=== PATIENT | male | born 1975 | race Caucasian/White ===

== ENCOUNTER → 2018-04-15 10:55 | Outpatient (CLI) | payer OTHER, SELFPAY ==
--- NOTE | 2018-04-15 11:03 | MRI_ITS ---
STUDY: MRI LEFT ANKLE WITHOUT CONTRAST REASON FOR EXAM: Left heel/foot pain for 2-3 months, evaluate for plantaris fasciitis. TECHNIQUE: Standardized fat and water weighted pulse sequences were obtained in all 3 orthogonal planes. COMPARISON: None. FINDINGS: Normal subcutis adipose space. There is a small volume of fluid in the submalleolar posterior tibialis and flexor digitorum longus tendon sheaths (T2 coronal images 20-22). The posterior tibialis and flexor digitorum longus tendons are morphologically normal. There is fluid in the flexor hallucis longus tendon sheath, likely from communication with the tibiotalar articulation. Normal peroneus longus and brevis tendons. Normal tibialis anterior tendon. Normal extensor hallucis longus tendon. Normal extensor digitorum longus tendons. Normal Achilles tendon and teno-osseous insertion. Normal plantar without thickening or interstitial edema to indicate plantar fasciitis. There is a very small plantar calcaneal enthesophyte (T1 sagittal image 12). There is no calcaneal stress fracture. Normal intrinsic muscles of the rearfoot. Normal distal tibiofibular syndesmotic ligamentous complex. Normal lateral ligamentous complex. Normal subtalar ligaments and sinus tarsi. Normal deltoid ligamentous complexes. Normal plantar calcaneonavicular (spring) ligament. There is a small tibiotalar joint effusion (inversion recovery sagittal image 13). Normal talar dome. Normal subtalar articulations. Normal talonavicular articulation. Normal calcaneocuboid articulation. Normal navicular-cuneiform articulations. MRI/Lower Ext/No Jt/w/o IMPRESSION: Mild posterior tibialis and flexor digitorum longus tenosynovitis. Small tibiotalar joint effusion. Very small plantar calcaneal enthesophyte. No demonstrated plantar fasciitis. Electronically Signed: Tu Palomino MD at 14:10 EST Tel , Service support ,
== END ==
PROVIDERS: Referring Provider Podiatrist; Visit Provider Podiatrist
DX: M72.2 Plantar fascial fibromatosis (principal); M77.32 Calcaneal spur, left foot
CPT/HCPCS: 73718

== ENCOUNTER → 2018-10-11 | Outpatient (CLI) | payer OTHER, SELFPAY ==
--- NOTE | 2018-10-11 16:22 | MRI_ITS ---
HISTORY: Left rear foot pain. Heel spur. Plantar fasciitis. Symptoms since January 2018. Technique: Sagittal T1 and T2 fat sat, axial T1 and T2, coronal T2 series were obtained through the calcaneus and ankle. 6 series. 178 images. Previous MRI of this region was performed on April 15, 2018. Previous x-ray is from March 18, 2015, but is of the right calcaneus Findings: Plantar fasciitis is now present. The plantar aponeurosis is now thickened. Abnormal increased T2-weighted signal consistent with edema is present within the aponeurosis and extends down to the periosteum of the weightbearing portion of the calcaneus. This is new disease since previous study. The plantar fascia, however, is intact, and has not yet disrupted from the calcaneus. The Achilles tendon is intact and normal. The paranasal longus and brevis tendons appear to be intact and normal. Flexor hallucis longus tendon has some fluid within its sheath, which is normal in the patient with a small ankle effusion. Posterior tibial and flexor digitorum longus tendons appear to be normal in signal. Anterior extensor tendons appear to be intact. MRI/Lower Ext/No Jt/w/o IMPRESSION: Plantar fasciitis at the plantar aponeurosis. As yet no tearing to the plantar fascia. at 0253 Reported and signed by: Tomasz Johnson MD Electronically Signed: Tomasz Johnson MD at 2:52 EDT Tel , Service support ,
== END | disposition home or self-care (01) ==
PROVIDERS: Referring Provider Podiatrist; Visit Provider Podiatrist
DX: M72.2 Plantar fascial fibromatosis (principal); M77.32 Calcaneal spur, left foot
CPT/HCPCS: 73718

== ENCOUNTER 2018-11-11 05:53 | Day surgery (SDC) | payer OTHER, SELFPAY ==
[2018-11-09 13:45] LABS: Absolute Lymphocyte Count 2.21 X10^3/uL (0.83-4.51); Absolute Neutrophil Count 4.6 X10^3/uL (2.0-7.7); Basophil# 0.05 X10^3/uL; Basophil% 0.6 % (0-1); Eosinophil# 0.13 X10^3/uL; Eosinophils% 1.7 % (0-5); Hematocrit 46.3 % (40-54); Hemoglobin 15.6 g/dL (13.0-16.5); Lymphocyte # 2.21 X10^3/ul (4.0); Lymphocyte % 28.7 % (19-41); Mean Corp Hgb Conc 33.7 g/dL (32-36); Mean Corpuscular Hgb 29.1 pg (27.0-32.0); Mean Corpuscular Volume 86.4 fL (80-94); Mean Platelet Vol. 9.6 fl (6.2-12.0); Monocyte# 0.72 X10^3/uL; Monocyte% 9.4 % (0-10); NRBC Flagged by Analyzer 0 % (0-5); Neutrophil # 4.58 X10^3/uL (2.7-7.7); Neutrophil % 59.5 % (47-70); Platelet Count 214 K/mm3 (150-450); RBC Distribution Width CV 12.8 % (11.6-14.6); RBC Distribution Width SD 39.8 fl (35.1-43.9); Red Blood Count 5.36 M/mm3 (4.6-6.2); White Blood Count 7.7 K/mm3 (4.4-11.0)
[2018-11-09 14:08] LABS: ALB/GLOB Ratio 1.1 RATIO (0.9-2.4); AST(SGOT) 18 U/L (15-37); Alanine Aminotransfer ALT/SGPT 26 U/L (16-61); Albumin, Serum 3.9 g/dL (3.2-5.0); Alkaline Phosphatase 80 U/L (45-117); Anion Gap 2 (5-15); BUN 16 mg/dL (7-18); BUN/Creat Ratio 14.5 RATIO (10-20); Calcium,Total 9.1 mg/dL (8.5-10.1); Chloride 104 mmol/L (98-107); EST Glomerular Filtration Rate 77 mL/min (>60); Est Glom Filt Rate - Afr Amer 93 mL/min (>60); Globulin 3.7 g/dL (2.2-4.2); Glucose 59 mg/dL (74-106); Potassium 3.6 mmol/L (3.5-5.1); Protein, Total 7.6 g/dL (6.4-8.2); Sodium Level 139 mmol/L (136-145)
[2018-11-11 06:20] VITALS: BP 127/80; PULSE 58; RESP 16; TEMP 36.8; O2SAT 100; BMI 26.6
--- NOTE | 2018-11-11 07:00 | RAD_ITS ---
STUDY: X-RAY - LEFT CALCANEUS REASON FOR EXAM: Male, 43 years old. Plantar fasciotomy. TECHNIQUE: 4 coned-down intraoperative view(s) of the calcaneus were obtained. COMPARISON: None. FINDINGS: Plantar spur. Resection of the plantar spur. RAD/Calcaneus min 2 Views IMPRESSION: Intraoperative imaging provided for resection of the plantar spur. Electronically Signed: Dieudonne Abreu, at 10:43 EDT , Service support ,
[2018-11-11] MEDS: Cefazolin 2 GM in 0.9% Normal Saline 100 ML IV (07:27)
[2018-11-11] MEDS: Bupivacaine Mpf 0.5% 30 ML VIAL (07:35)
--- NOTE | 2018-11-11 08:17 | DCINST_ITS ---
Discharge Diet: Light diet - advance as tolerated Discharge Activity: May not drive while taking narcotic pain medications. Weight Bearing Status: No weight bearing - No weightbearing left foot Keep extremity elevated above heart level: Left Leg - Keep left foot elevated with pillows for at least 50 minutes of every hour Call your doctor if your incision/area has: Continuous Slow Oozing, Sudden Increased Bleeding, Increased Redness, Foul Smelling Discharge Call your doctor if you observe: Fever of 101 or Higher, Coldness, Increased Pain, Shortness of breath, Chest pain, Increased palpitations (irregular heartbeat), Calf discomfort, Uncontrolled pain Cleanse incision/area with: Do not get Incision Wet, Keep Dressing Clean & Dry Allergies/Adverse Reactions: Allergies No Known Allergies Allergy (Verified 11/11/18 06:15) Medications to take at Discharge Cefadroxil [Duracef] 500 mg PO Q12H #6 cap 11/11/18 Hydrocodone/Acetaminophen [Vicodin 5-300 mg Tablet] 1 - 2 tab PO Q6H PRN PRN 3 Days #15 tab 11/11/18 The following prescriptions were given: Cefadroxil [Duracef] 500 mg PO Q12H #6 cap Prescription Printed Hydrocodone/Acetaminophen [Vicodin 5-300 mg Tablet] 1 - 2 tab PO Q6H PRN PRN 3 Days #15 tab PRN Reason: Pain Prescription Printed Primary Care Physician: Care Physician,No Primary [Primary Care Provider] - Test Results: Test results from this visit will be discussed in further detail at your follow- up appointment, if applicable. Please Follow Up With: Rodriguez Pappas DPM When: within 1 week, sooner if needed
[2018-11-11 08:18] VITALS: BP 127/80; BP 129/86; PULSE 65; RESP 16; TEMP 36.4; O2SAT 99
--- NOTE | 2018-11-11 08:18 | PCM.OPRPT ---
Report of Operation Date of Procedure: 11/11/18 Pre-Operative Diagnosis: Plantar Fasciitis, left. 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 He has elected to undergo surgical intervention - plantar fasciotomy with resection of infracalcaneal heel spur. This was discussed with him in detail, reviewed the possible benefits vs risks, goals, expectations, alternative options, and typical healing/post op recovery. The consent forms were reviewed with him, and he freely signed them. All of his questions were answered. No guarantees were given nor implied. No warranties were given. Operative Procedure: The patient was brought back into the operating room and was placed on the operating room table in the supine position. Patient was carefully secured to the operating room table with a safety belt around the waist. A time out was performed and the patient was properly identified and the surgical plan was confirmed. The patient received 2g of IV Cefazolin for antibiotic prophylaxis. A well padded pneumatic tourniquet was applied around the patient's left ankle. The patient received anesthesia per the anesthesiologist, and a total of 20mL of 0.5% Bupivacaine plain was given as a regional nerve block around the heel surgical site. The left foot was scrubbed, prepped, draped in the usual aseptic fashion. The left foot was elevated for 3 minutes and the right ankle pneumatic tourniquet was inflated to 250mmHg. The infracalcaneal spur was visualized on intra operative fluoroscopy, image was saved. A skin incision was made to the medial hindfoot at the level of the plantar fascia and infracalcaneal spur, careful dissection was completed down through the subcutaneous tissue layer. A plane was created superiorly and inferiorly around the plantar fascia and the medial 50% of the plantar fascia was released via a plantar fasciotomy. It was noted there was significant thickening of the plantar fascia with fibrosis at this level consistent with chronic plantar fasciitis. The infracalcaneal spur was felt, and was carefully resected using a powered rasp. Resection of the infracalcaneal spur was confirmed using intraoperative fluoroscopy. Images pre and post infracalcaneal spur resection were saved. The site was flushed out with copious amounts of normal saline solution. The skin was reapproximated using 3-0 Nylon. The pneumatic tourniquet was deflated (total tourniquet time was 17 minutes), and there was immediate return of warmth and perfusion to the foot and to all toes on the foot with normal temperature gradient and CFT < 2 seconds to all toes. Hemostasis was achieved. A dressing was applied which consisted of Betadine soaked adaptic, 4x4 gauze, Kerlix and stephen bandage, being sure to apply it not to tight. The patient tolerated the above operative procedure well at the anesthesia well with no complication. The patient was transported to the recovery room with vital signs stable and in good condition. Post operative orders were placed. Post operative instructions were reviewed and dispensed verbal and written. No weightbearing left foot, keep left foot elevated for at least 50 minutes of every hour, keep dressing clean, dry and intact. Prescription for Vicodin 1-2 tabs PO q 6 hours prn pain was prescribed, also Cefadroxil 500mg PO q 12 hours for 3 days to help prevent infection. He is to follow up with me within 1 week or sooner if needed. Also post op calcaneus xrays (left) were obtained and reviewed in the PACU, 2 views. Findings show resection of infracalcaneal spur, otherwise no other acute findings and no complications seen. Grafts/Implants Used: None - Complications None
[2018-11-11 08:30] VITALS: BP 127/79; BP 127/80; PULSE 50; RESP 16; O2SAT 98
--- NOTE | 2018-11-11 08:41 | RAD_ITS ---
STUDY: X-RAY - LEFT CALCANEUS REASON FOR EXAM: Male, 43 years old. Status post plantar fasciotomy with resection of calcaneal spur. TECHNIQUE: AP and lateral view(s) of the calcaneus were obtained. COMPARISON: None. FINDINGS: Normal visualized calcaneus. Postoperative soft tissue changes. RAD/Calcaneus min 2 Views IMPRESSION: Postoperative soft tissue changes. Electronically Signed: Dieudonne Abreu, at 9:10 EDT , Service support ,
[2018-11-11 08:45] VITALS: BP 122/77; BP 127/80; PULSE 50; RESP 16; O2SAT 100
[2018-11-11 09:00] VITALS: BP 117/76; BP 127/80; PULSE 48; RESP 16; TEMP 36.2; O2SAT 99
[2018-11-11 09:36] VITALS: BP 125/88; BP 127/80; PULSE 55; RESP 16; TEMP 36.2; O2SAT 98
== END 2018-11-11 09:55 | disposition home or self-care (01) ==
LOC: SDC 05:53 → AC 05:54
PROVIDERS: Referring Provider Podiatrist; Visit Provider Podiatrist
PROC: (CPT 28119; principal; 2018-11-11 07:15)
DX: M72.2 Plantar fascial fibromatosis (principal); M77.32 Calcaneal spur, left foot
CPT/HCPCS: 01480; 28119; 64450; 36415; 73650; 76000; 80053; 85025; J7120; J2405

== ENCOUNTER 2019-02-01 16:30 | Outpatient (RCR) | payer OTHER, SELFPAY ==
--- NOTE | 2019-01-04 16:59 | HP.PTEVAL_ITS ---
Patient's Visit Information SOFIA GUERIN is a 43 year old M referred to Physical Therapy by Rodriguez Pappas DPM with a diagnosis of LEFT S/P PLANTARFASCIOTOMY. Date of Evaluation: 01/04/19 Physical Therapist: Johann Alexandra, PT, Cert MDT, OCS - Visit Plan Frequency: 2x /Week Duration: 4 Weeks Plan: PT INTERVENTIONS ROM/FLEXABLITY LEFT PLANTARFASCIA,STRENGTHENING EX'S LEFT ANKLE ,FOAM ROLLING,BIKE ,ENDURANCE - Subjective Findings: This 43 y/o male presenst to physical therapy with left plantarfasciotomy. 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 Pateint had prior PT and all conservative treatments stem cell,E-PAT ,BOOT which failed, Thus ,patient underwent s/p plantar fasciotomy with heel spur resection on November 11 done at [facility]. Patient NWB with crutches 1 wk then boot and crutches couple weeks .Then 2weeks removed boot. Then recommended to start PT. Patient has soreness in foot general. Patient has no pain with walking and general activities . Patient goal is return o runnning. Patient RTS in 2weeks.C/O some parathesia heel . Sleeping good . VOCATION:: [employer]. SOCAIL: . HOBBIES: running - Pain Left Foot Pain Intensity (Out of 10): 0 Pain Intensity Range: 1 Comment: soreness - Objective POSTURE: PES PLANUS( patient use per counter ). GAIT: normal slava. PALAPTION: unremarkable. NEURO: intact. AROM: dorsiflexion 10 degrees ,plantarflexion 65 degrees,eversion 10 degrees,inversion 45 degrees. MMT: ankle stabilizers 4/5,GTE 4/5. PROPRIOCEPTION : intact - Goals Goal 1:: Independant with HEP Goal Time Frame: 2-4 Weeks Goal 2:: Increase strength left ankle 5/5 to return to running. Goal Time Frame: 2-4 Weeks Goal 3:: IMPROVE LFES score by 10 ponts to return to running. Goal Time Frame: 2-4 Weeks Goal 4:: Pateint able to perform simulation activitioes to progress to running. Goal Time Frame: 2-4 Weeks - Rehabilitation Potential Physical Therapy Diagnosis: This patient underwent s/p surgery planterfasciotomy with decrease strengt and prioprioception to return to running. Rehabilitation Potential: Good - Anticipated Interventions Patient/Client Instruction: Educate patient on: Condition, Plan of Care For the Purpose of:: To improve muscle performance and motor function, To increase tolerance to activity/condition/position, To improve ability of physical actions for home/community/work/leisure, To improve gait and locomotor functions, To improve health of tissue, To decrease soft tissue restriction, To improve balance, To improve ability to perform tasks related to life management Other: RUNNING Therapeutic Exercise to Include: Strength training, Endurance training, Balance training, Flexibilty training, Active ROM Comment: ANKLE/PLANTARFASCIA For the Purpose of:: To improve muscle performance and motor function, To imp rove ability to perform ADL's, To increase tolerance to activity/condition/position, To improve ability of physical actions for home/community/work/leisure, To improve health of tissue, To decrease soft tissue restriction, To improve endurance, To improve ability to perform tasks related to life management Thank you for the opportunity to evaluate your patient. For Medicare and Medicare HMO plans, please review the plan of care and approve it. It will need to be FAXED BACK to us at [phone] for Medicare purposes. For Medicare only, by signing this I certify the plan of care. Please let me know if there are questions or concerns regarding this plan of care. Physician Signature: Date:
--- NOTE | 2019-02-01 17:26 | HP.PTDCSUM ---
HP - PT D/C Summary It has been my pleasure to treat SOFIA Perales CALL under orders from Rodriguez Pappas DPM, for the diagnosis of LEFT S/P PLANTARFASCIOTOMY for a total of 8 visit(s). Discharge Date: 02/01/19 Please see the following information for a summary of their discharge status. - Subjective Subjective: Doing well ..progressing okay for d/c - Pain Left Foot Pain Intensity (Out of 10): 0 - Overall Improvement % Improvement: 90 - Objective Objective/Function: POSTURE: normal arch. PALAPTION: UNREMARKABLE. AROM: ankle DF 5 degrees,PF 60 degrees ,INVERSION ,40 degrees,eversion 10 degrees. PROPRIOCEPTION: intact. MMT: ankle 5/5. Patient has up to jogging 1-2miles. Jogged on treadmill . Work on hip strengthening swell - Goals Goal 1:: Independant with HEP Goal Progress: Goal Met Goal 2:: Increase strength left ankle 5/5 to return to running. Goal Progress: Goal Met Goal 3:: IMPROVE LFES score by 10 ponts to return to running. Goal Progress: Goal Met Goal 4:: Pateint able to perform simulation activitioes to progress to running. Goal Progress: Goal Met - Plan Plan: D/C TO HEP - D/C Information Discharge Comments: D/C HEP If there are questions or concerns regarding this patient's physical therapy, please feel free to call me at [phone]. Thank you for the referral of this patient. Sincerely, Johann Alexandra, PT, Cert MDT, OCS
== END 2019-02-01 19:00 | disposition home or self-care (01) ==
LOC: PT 16:30
PROVIDERS: Referring Provider Podiatrist; Visit Provider Podiatrist
DX: Z98.890 Other specified postprocedural states (principal)
CPT/HCPCS: 97110; 97161

== ENCOUNTER → 2021-01-10 11:24 | Outpatient (CLI) | payer OTHER, SELFPAY | PROVIDERS: Visit Provider Physician Assistant Surgical | DX: Z11.52 Encounter for screening for COVID-19 (principal) | CPT/HCPCS: 87635; U0005; U0003 ==

== ENCOUNTER → 2021-03-19 12:14 | Outpatient (CLI) | payer OTHER, SELFPAY ==
[2021-03-19 15:12] LABS: Absolute Lymphocyte Count 1.94 X10^3/uL (0.83-4.51); Absolute Neutrophil Count 8.1 X10^3/uL (2.0-7.7); Basophil# 0.05 X10^3/uL; Basophil% 0.5 % (0-1); Eosinophil# 0.04 X10^3/uL; Eosinophils% 0.4 % (0-5); Hematocrit 45.6 % (40-54); Hemoglobin 15.8 g/dL (13.0-16.5); Lymphocyte # 1.94 X10^3/ul (0.83-4.51); Lymphocyte % 17.9 % (19-41); Mean Corp Hgb Conc 34.6 g/dL (32-36); Mean Corpuscular Hgb 29.4 pg (27.0-32.0); Mean Corpuscular Volume 84.8 fL (80-94); Mean Platelet Vol. 9.8 fl (6.2-12.0); Monocyte# 0.75 X10^3/uL; Monocyte% 6.9 % (0-10); NRBC Flagged by Analyzer 0 % (0-5); Neutrophil # 8.05 X10^3/uL (2.7-7.7); Neutrophil % 74.1 % (47-70); Platelet Count 237 K/mm3 (150-450); RBC Distribution Width CV 12.8 % (11.6-14.6); RBC Distribution Width SD 39.2 fl (35.1-43.9); Red Blood Count 5.38 M/mm3 (4.6-6.2); White Blood Count 10.9 K/mm3 (4.4-11.0)
[2021-03-19 15:28] LABS: AST(SGOT) 32 U/L (15-37); Alanine Aminotransfer ALT/SGPT 55 U/L (16-61); Albumin, Serum 3.9 g/dL (3.2-5.0); Alkaline Phosphatase 79 U/L (45-117); Anion Gap 7 (5-15); BUN 18 mg/dL (7-18); BUN/Creat Ratio 16.7 RATIO (10-20); Calcium,Total 9.6 mg/dL (8.5-10.1); Chloride 107 mmol/L (98-107); Cholesterol 241 mg/dL (200); Creatinine, Serum 1.08 mg/dL (0.70-1.30); EST Glomerular Filtration Rate 78 mL/min (>60); Est Glom Filt Rate - Afr Amer 94 mL/min (>60); Globulin 4.1 g/dL (2.2-4.2); Glucose 95 mg/dL (74-106); High Density Lipoprotein 62 mg/dL; Potassium 4.1 mmol/L (3.5-5.1); Sodium Level 142 mmol/L (136-145); Triglycerides 95 mg/dL; Very Low Density Lipoprotein 19 mg/dL (5-40)
== END ==
PROVIDERS: PCP Family Medicine; Referring Provider Family Medicine; Visit Provider Family Medicine
DX: Z00.00 Encounter for general adult medical examination without abnormal findings (principal)
CPT/HCPCS: 36415; 80053; 80061; 85025

== ENCOUNTER 2021-05-15 07:30 | Outpatient (RCR) | payer OTHER, SELFPAY ==
--- NOTE | 2021-04-03 12:37 | HP.OTEVAL_ITS ---
Patient's Visit Information SOFIA GUERIN is a 46 year old M, referred to Occupational Therapy by Dr. Dilia Zambrano MD, with a diagnosis of medial epicondylitis. Date of Evaluation: 04/03/21 Occupational Therapist: Farzana Watkins, OTR/Kath, CHT - Subjective This 46 year old male was seen for OT eval with dx of medial epi. pt states sometime in October/Nov. he was attempting to move a gas can full of sand and felt a pull- pt states pain with sleeping with arm bent under him and with lifting items like suitcase or bag of groceries. Pt states he would like to have no pain with theses tasks. 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 - Pain right elbow 2 Pain Intensity Range: 3 - ROM Elbow: right +10/135 left 0/145 Forearm: right/ left WNL Wrist: right/left WNL - Strength Greenhouse Manager: right 115# left 95# Lateral Pinch: right 20# left 16# Tripod Pinch: right 20# left 18# - Sensation Sensation Comments: denies - Special Tests Valgus Stress Test - MCL Instability: negative Varus Stress Test - MCL Instability: negative Biceps Squeeze - Rupture Biceps: negative/ hook test negative - Quick DASH-Disab of Arm,Shoulder& Hand Quick DASH Score: 16.6650 - Goals Goal:: pt will demo a increase in right elbow flex by 10* to increase pts ind with ADLs and IADLs. Goal:: pt will report right elbow pain no greater than 1/10 with use of right UE with ADLs less than 25% of the time by d/c Goal:: pt will demo understanding of UE ergo with lift/carry and pulling to limit stress on tendons and decrease risk of re-injury by d.c - Rehabilitation General Assessment: Pt demo with pain at right elbow with lift of objects- pt symptoms are inline with biceps tendon involvement vs medial side of elbow-. Pt is limited with ADls and IADls at this time due to right elbow pain- pt would benefit from skilled OT services 2x week for 4 weeks to decrease pain and return pt to his PLOF. Therapy will utilize modalities, trigger point release, and erg. ed. on lifting in protective positions of elbow to limit biceps tendon stress and medial collateral lig of right elbow. Pt demo understanding and agree to POC. Rehabilitation Potential: Good - Anticipated Interventions Strengthening, Triggerpoint Release, Modalities, Joint Protection/Energy Conservation, Ergonomic Education, Education re Diagnosis - Visit Plan Frequency: 1-2x /Week Duration: 4 Weeks TEXT: Thank you for the opportunity to evaluate your patient. For Medicare and Medicare HMO plans, please review the plan of care and approve it. It will need to be FAXED BACK to us at [phone] for Medicare purposes. Please let me know if there are questions or concerns regarding this plan of car e. Physician Signature: Date:
--- NOTE | 2021-05-12 16:16 | HP.OTREVAL ---
Dr. Dilia Zambrano MD, It has been my pleasure to treat SOFIA GUERIN over the last 7 visits for medial epicondylitis. Please see the progress note below for an update on the occupational therapy plan of care! Subjective: pt arrives states due to the snow he was shoveling and now arm is painful Objective/Function: pt does not have pain with resistive forearm supination or pronation. no pain with resistive wrist flex-\. pain with resistive biceps forearm supination. no pain with biceps forearm in N. pt may benefit from imaging to rule out partial biceps tendon tear. Plan Plan: US - k-tape at biceps/ eccentric biceps. due to progression pt may benefit from imaging to R/O partial tear Goals - Goals Patient Goals: Regain Mobility, Decrease Pain, Use Hand/Wrist/Arm Normally Again Goal:: pt will demo a increase in right elbow flex by 10* to increase pts ind with ADLs and IADLs. Goal:: pt will report right elbow pain no greater than 1/10 with use of right UE with ADLs less than 25% of the time by d/c Goal:: pt will demo understanding of UE ergo with lift/carry and pulling to limit stress on tendons and decrease risk of re-injury by d.c Anticipated Interventions Anticipated Interventions: Strengthening, Triggerpoint Release, Modalities, Joint Protection/Energy Conservation, Ergonomic Education, Education re Diagnosis Please do not hesitate to contact me at [phone] by phone or if you have questions or concerns regarding this new plan of care! Sincerely, Farzana Wtakins, OTR/L, CHT
--- NOTE | 2021-07-31 14:41 | HP.OTDCSUM ---
It has been my pleasure to treat SOFIA Perales CALL under orders from Dr. Dilia Zambrano MD, for the diagnosis of medial epicondylitis for a total of 8 visit(s). Please see the following information for a summary of their discharge status. Objective/Function: pt does not have pain with resistive forearm supination or pronation. no pain with resistive wrist flex-\. pain with resistive biceps forearm supination. no pain with biceps forearm in N. pt may benefit from imaging to rule out partial biceps tendon tear. pt has not returned to OTR/L,CHT at this time and due to time lapse in services pt D/C. Patient Goals: Regain Mobility, Decrease Pain, Use Hand/Wrist/Arm Normally Again Goal:: pt will demo a increase in right elbow flex by 10* to increase pts ind with ADLs and IADLs. Goal:: pt will report right elbow pain no greater than 1/10 with use of right UE with ADLs less than 25% of the time by d/c Goal:: pt will demo understanding of UE ergo with lift/carry and pulling to limit stress on tendons and decrease risk of re-injury by d.c Plan: US - k-tape at biceps/ eccentric biceps. due to progression pt may benefit from imaging to R/O partial tear If there are questions or concerns regarding this patient's occupational therapy, please fell free to call me at [phone]. Thank you for the referral of this patient. Sincerely, Farzana Watkins, OTR/Kath, CHT
== END 2021-05-15 19:00 | disposition home or self-care (01) ==
LOC: OT 07:30
PROVIDERS: PCP Family Medicine; Referring Provider Family Medicine; Visit Provider Family Medicine
DX: M77.00 Medial epicondylitis, unspecified elbow (principal)
CPT/HCPCS: 97035; 97140; 97166

== ENCOUNTER 2021-06-19 16:17 | Outpatient (CLI) | payer OTHER, SELFPAY ==
--- NOTE | 2021-06-19 16:18 | MRI_ITS ---
STUDY: MRI RIGHT ELBOW REASON FOR EXAM: Male, 46 years old. RIGHT elbow pain jazz. with rotation and lifting TECHNIQUE: Standardized fat and water weighted pulse sequences were obtained in all 3 orthogonal planes. COMPARISON: X-ray June 06, 2021 FINDINGS: Normal radio-capitellum articulation. Normal radial collateral ligamentous complex. Normal common extensor tendon. Normal ulnotrochlear articulation. Normal ulnar collateral ligamentous complex. Normal common flexor tendon. The cubital tunnel is normal, with a normal ulnar nerve. There is tendinosis with thickening of the distal biceps tendon, but without a demonstrated tendon tear, series 7 image /. Normal lacertus fibrosis. Normal brachialis musculotendinous insertion. Normal triceps tendon and teno-osseous insertion. Normal olecranon process. The visualized distal humerus, proximal radius, and ulna are normal. The visualized muscles of the distal arm and proximal forearm are normal. The soft tissue structures are unremarkable. MRI/Upper Ext Joint Only(Routine) IMPRESSION: Tendinosis of the distal biceps. No focal tear. Electronically Signed: Juan Pleitez MD at 9:40 EST Reading Location ID and State: [address] [place] [address] , Service support ,
== END 2021-06-19 23:59 | disposition home or self-care (01) ==
PROVIDERS: PCP Family Medicine; Visit Provider Orthopaedic Surgery
DX: M75.21 Bicipital tendinitis, right shoulder (principal)
CPT/HCPCS: 73221

== ENCOUNTER 2021-07-28 16:00 | Outpatient (RCR) | payer OTHER, SELFPAY ==
--- NOTE | 2021-06-25 07:59 | HP.PTEVAL_ITS ---
Patient's Visit Information SOFIA GUERIN is a 46 year old M referred to Physical Therapy by Dr. Samuel Menendez DO with a diagnosis of R biceps tendinosis. Date of Evaluation: 06/25/21 Physical Therapist: Kimo Ambrose, PT, ATC - Visit Plan Frequency: 2-3x /Week Duration: 4-6 Weeks Plan: DTR to distal biceps tendon, stretching, eccentric strengthening, UBE, and HEP. CP for pain - Subjective Pt reports he has had R biceps pain since October of 2020. Pt reports he believes he aggravated his biceps while golfing at the time. Pt reports this caused him to have to stop playing at the time. Pt reports the pain would intermittently go away, but the pain still returns. Pt reports using a screwdriver and playing darts still increases his pain. Pt notes running will increase his pain as well. Pt reports he had an MRI performed which revealed degeneration of the tendons in his R biceps tendon. No tingling or numbness in R UE. No sleep difficulty at this time secondary to pain. No PMHx of R biceps pathology. Pt reports R biceps pain is currently 0/10 pain at rest, but elevates to 4/10 at worst and is described as a constant ache. Pt notes he was treated by OT in the past for this which temporarily helped, but the pain never went away. - Pain R biceps pain Pain Intensity (Out of 10): 0 Pain Intensity Range: 4 - Objective Neuro: B UE sensation is WNL to light touch. B bicepital reflex 2/3. Palpation: Pt is sore along the distal biceps region and in the cubital region of the R UE. No obvious deformity present at this time. ROM: R elbow 0-2-145 degrees; L elbow 0-2-135. MMT: R elbow flex at full ext= 4-/5, at 90 degrees flexion= 4- /5; L elbow flexion at full ext= 5/5, at 90 degrees flex= 5/5. Special testing: Pt has pain with forearm supination, pronation, and ulnar deviation MMT of the biceps - Balance/Special Test Scores Quick DASH Score: 18.1800 - Goals Goal 1:: Decrease R elbow pain x 50% to aid with IADL's Goal Time Frame: 4-6 Weeks Goal 2:: Increase R elbow flex strength to 5/5 to aid with return to golf without limitation Goal Time Frame: 4-6 Weeks Goal 3:: Increase R elbow ROM x 5-10 degrees to aid with decreasing R elbow pain Goal Time Frame: 4-6 Weeks Goal 4:: I with HEP Goal Time Frame: 4-6 Weeks - Rehabilitation Potential Physical Therapy Diagnosis: R biceps pain, weakness, and limited ROM secondary to R biceps tendinosis Rehabilitation Potential: Good - Anticipated Interventions Patient/Client Instruction: Educate patient on: Condition, Plan of Care For the Purpose of:: To improve self management Therapeutic Exercise to Include: Strength training, Flexibilty training, Active ROM For the Purpose of:: To decrease pain, To increase ROM, To improve muscle perf ormance and motor function Manual Therapy Techniques to Include: Soft tissue mobilization For the Purpose of:: To decrease pain, To increase ROM Cryotherapy (ice pack, ice massage): Yes Thermo therapy (hot pack): Yes For the Purpose of:: To decrease pain, To increase ROM Thank you for the opportunity to evaluate your patient. For Medicare and Medicare HMO plans, please review the plan of care and approve it. It will need to be FAXED BACK to us at [phone] for Medicare purposes. For Medicare only, by signing this I certify the plan of care. Please let me know if there are questions or concerns regarding this plan of care. Physician Signature: Date:
--- NOTE | 2021-10-08 12:12 | HP.PTDCSUM ---
It has been my pleasure to treat SOFIA Perales CALL referred by Dr. Samuel Menendez DO, with the diagnosis of R biceps tendinosis for a total of 9 visit(s). Discharge Date: Please see the following information for a summary of their discharge status. Subjective: I dont really have any pain today R biceps pain Pain Intensity (Out of 10): 0 % Improvement: 70 Objective/Function: R UE pain ranges from 0-3/10. R elbow ROM 0-140 degrees. R elbow MMT: flex= 5/5, ext= 5/5. Pt is I with HEP. Rx goals achieved Goal 1:: Decrease R elbow pain x 50% to aid with IADL's Goal Progress: Goal Met Goal 2:: Increase R elbow flex strength to 5/5 to aid with return to golf without limitation Goal Progress: Goal Met Goal 3:: Increase R elbow ROM x 5-10 degrees to aid with decreasing R elbow pain Goal Progress: Goal Met Goal 4:: I with HEP Goal Progress: Goal Met Plan: Discharge to HEP If there are questions or concerns regarding this patient's physical therapy, please feel free to call me at [phone]. Thank you for the referral of this patient. Sincerely, Kimo Ambrose, PT, ATC Balance/Gait/Functional tests - Balance/Special Test Scores Quick DASH Score: 4.5450
== END 2021-07-28 19:00 | disposition home or self-care (01) ==
LOC: PT 16:00
PROVIDERS: PCP Family Medicine; Referring Provider Orthopaedic Surgery; Visit Provider Orthopaedic Surgery
DX: M75.21 Bicipital tendinitis, right shoulder (principal)
CPT/HCPCS: 97110; 97140; 97161; 97164; 97530

== ENCOUNTER → 2023-02-23 | Outpatient (CLI) | payer OTHER, SELFPAY ==
--- NOTE | 2023-02-23 07:41 | MRI_ITS ---
PROCEDURE: MRI LOWER EXTREMITY RIGHT TIBIA/FIBULA REASON FOR EXAM: Male, 47 years old. 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 TECHNIQUE: Standardized fat and water weighted pulse sequences were obtained in all 3 orthogonal planes. COMPARISON: Right tibia/fibular radiographs dated 01/27/2023. FINDINGS: Normal visualized tibia and fibula, without a periosteal, cortical or cancellous marrow abnormality. Normal anterior, lateral, and posterior calf compartments, with normal muscles, crural fascia and intermuscular septa. Normal subcutis adipose space, without subcutis adipose space edema. There is no solid, cystic or lipomatous mass lesion of the subcutis adipose space. MRI/Lower Ext/No Jt/w/o IMPRESSION: Normal unenhanced MRI of the right tibia/fibula. Electronically Signed: Sebastián Flores MD at 9:19 EDT ,
== END | disposition home or self-care (01) ==
PROVIDERS: PCP Family Medicine; Referring Provider Physician Assistant; Visit Provider Physician Assistant
DX: S89.90XA Unspecified injury of unspecified lower leg, initial encounter (principal); M79.604 Pain in right leg
CPT/HCPCS: 73718

== ENCOUNTER 2023-02-26 17:29 | Emergency (ER) | payer OTHER, SELFPAY ==
[2023-02-26 17:30] VITALS: BP 136/98; PULSE 53; RESP 18; TEMP 36.1; O2SAT 99; BMI 27.5
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
[2023-02-26 17:59] VITALS: O2SAT 96
[2023-02-26 18:49] VITALS: BP 135/79; PULSE 55; RESP 16; O2SAT 96
== END 2023-02-26 18:54 | disposition home or self-care (01) ==
PROVIDERS: Emergency Provider Emergency Medicine; PCP Family Medicine; Visit Provider Emergency Medicine
DX: S06.0X0A Concussion without loss of consciousness, initial encounter (principal); S16.1XXA Strain of muscle, fascia and tendon at neck level, initial encounter; V49.40XA Driver injured in collision with unspecified motor vehicles in traffic accident, initial encounter
CPT/HCPCS: 70450; 72125; 99282

== ENCOUNTER → 2024-01-13 | Outpatient (CLI) | payer OTHER, SELFPAY ==
--- NOTE | 2024-01-13 08:50 | RAD_ITS ---
STUDY: X-RAY - SACRUM/COCCYX REASON FOR EXAM: Male, 48 years old. PAIN OVER RIGHT SIDE TECHNIQUE: 3 view(s) of the sacrum and coccyx were obtained. COMPARISON: None. FINDINGS: Normal bilateral sacroiliac joints. Normal visualized sacral ala and fused sacral bodies. Normal sacrococcygeal junction with a normal angulation. Normal coccygeal segments. The presacral soft tissue structures are unremarkable. RAD/Sacrum-Coccyx min 2 Views IMPRESSION: Normal x-rays of the sacrum and coccyx. Electronically Signed: Aly Erazo MD at 23:57 EDT ,
[2024-01-13 10:16] LABS: Absolute Lymphocyte Count 2.41 X10^3/uL (0.83-4.51); Absolute Neutrophil Count 3.2 X10^3/uL (2.0-7.7); Basophil# 0.06 X10^3/uL; Basophil% 0.9 % (0-1); Eosinophil# 0.34 X10^3/uL; Hematocrit 48.2 % (40-54); Hemoglobin 16.2 g/dL (13.0-16.5); Lymphocyte # 2.41 X10^3/ul (0.83-4.51); Lymphocyte % 35.5 % (19-41); Mean Corp Hgb Conc 33.6 g/dL (32-36); Mean Corpuscular Hgb 28.6 pg (27.0-32.0); Mean Platelet Vol. 9.9 fl (6.2-12.0); Monocyte# 0.71 X10^3/uL; Monocyte% 10.5 % (0-10); NRBC Flagged by Analyzer 0 % (0-5); Neutrophil # 3.24 X10^3/uL (2.7-7.7); Neutrophil % 47.8 % (47-70); Platelet Count 230 K/mm3 (150-450); RBC Distribution Width CV 12.7 % (11.6-14.6); RBC Distribution Width SD 39.4 fl (35.1-43.9); Red Blood Count 5.67 M/mm3 (4.6-6.2); White Blood Count 6.8 K/mm3 (4.4-11.0)
[2024-01-13 11:06] LABS: ALB/GLOB Ratio 0.9 RATIO (0.9-2.4); AST(SGOT) 28 U/L (15-37); Alanine Aminotransfer ALT/SGPT 43 U/L (16-61); Albumin, Serum 3.5 g/dL (3.2-5.0); Alkaline Phosphatase 86 U/L (45-117); Anion Gap 7 (5-15); BUN 19 mg/dL (7-18); Calcium,Total 9.2 mg/dL (8.5-10.1); Chloride 108 mmol/L (98-107); Cholesterol 230 mg/dL (200); Creatinine, Serum 1.12 mg/dL (0.70-1.30); EST Glomerular Filtration Rate 74 mL/min (>60); Est Glom Filt Rate - Afr Amer 89 mL/min (>60); Glucose 105 mg/dL (74-106); High Density Lipoprotein 61 mg/dL; Potassium 3.9 mmol/L (3.5-5.1); Protein, Total 7.5 g/dL (6.4-8.2); Sodium Level 141 mmol/L (136-145); Triglycerides 69 mg/dL; Very Low Density Lipoprotein 14 mg/dL (5-40)
== END | disposition home or self-care (01) ==
LOC: MTLAB 08:17
PROVIDERS: PCP Family Medicine; Referring Provider Family Medicine; Visit Provider Family Medicine
DX: Z00.00 Encounter for general adult medical examination without abnormal findings (principal); M53.3 Sacrococcygeal disorders, not elsewhere classified
CPT/HCPCS: 36415; 72220; 80053; 80061; 85025

== ENCOUNTER 2024-02-10 08:26 | Day surgery (SDC) | payer OTHER, SELFPAY ==
[2024-02-10] VITALS (8 sets, daily range): BP systolic 100–126; BP diastolic 67–91; PULSE 55–63; RESP 14–16; TEMP 36.3–36.8; O2SAT 95–100; BMI 27.3
--- NOTE | 2024-02-10 08:36 | PCM.HP.STD ---
[facility] - General General Date of Admission: 02/10/24 Date of Service: 02/10/24 Chief Complaint: Screening colonoscopy HPI Narrative SOFIA GUERIN, is a 48 M who presents today for screening colonoscopy. He has never had a colonoscopy in the past. He does not take any medicines on a daily basis. He does not have any problems with his bowels such as bleeding or diarrhea or change in bowel habits such as constipation. Overall he is in fairly good health. [facility] Medical History (Updated 02/08/24 @ 09:44 by Naa Davis) Wears contact lenses Wears glasses Injury of head and neck Biceps tendinitis of right upper extremity Right elbow pain Contact with or suspected exposure to other viral communicable disease Bone spur of foot History of lipoma Home Medications ?Medication ?Instructions ?Recorded ?Last Taken ?Type NK 01/27/23 Unknown History Allergy/AdvReac Type Severity Reaction Status Date / Time No Known Allergies Allergy Verified 02/08/24 09:39 Family History Mother Diabetes Father Diabetes Surgical History (Updated 02/08/24 @ 09:44 by Naa Davis) Hx of foot surgery Hx of foot surgery History of tonsillectomy and adenoidectomy History of ear surgery History of oral surgery Social History (Updated 01/13/24 @ 12:17 by Gayatri Bass) household members: spouse current occupational status: employed Smoking Status: Never smoker alcohol intake: current alcohol intake frequency: a few times a month substance use type: does not use ROS Review of Systems ROS Unobtainable: other Constitutional Constitutional: Denies fatigue, fever(s), poor appetite, weight gain or weight loss ENT HEENT: Denies mouth lesions Cardiovascular Cardiovascular: Denies abdominal bloating, abdominal edema or abdominal pain Respiratory/Chest Respiratory/Chest: Denies change in mental status, change in phlegm color, chest congestion or chest tightness Gastrointestinal Gastrointestinal: Denies belching, bloating, change in bowel habits, change in stool character, chewing difficulty, coffee ground emesis, constipation, cramping, diarrhea, dyspepsia, dysphagia, early satiety, excessive flatus, fecal incontinence, heartburn, hematemesis, hematochezia, hemorrhoids, loose stools, melena, nausea, odynophagia, rectal bleeding, tenesmus, vomiting or weight changes Genitourinary Genitourinary: Denies abdominal discomfort, burning urination or itching Musculoskeletal Musculoskeletal: Reports as per HPI; Denies muscle weakness or myalgias Integumentary Integumentary: Denies jaundice Neurologic Neurologic: Denies lack of coordination or weakness Psychiatric Psychiatric: Denies confusion, depression, memory loss, mood swings, paranoia or suicidal ideation Endocrine Endocrinology: Denies systems reviewed and no addt'l complaints, except as documented Hematologic/Lymphatic Hematologic/Lymphatic: Denies anemia, easy bleeding, easy bruising or lymphadenopathy Allergic/Immunologic Allergic/Immunologic: Denies systems reviewed and no addt'l complaints, except as documented Physical Exam Const alert General Appearance: cooperative Orientation / Consciousness: oriented to person HEENT hearing grossly normal bilaterally Head and Scalp: normal to inspection Face and Sinus: face symmetric Nose: external nose normal Mouth: oral and palatal mucosa normal Eyes conjunctivae normal General Eye: normal appearance of both eyes Neck full ROM General: normal visual inspection Lymph Lymphatic: no lymphadenopathy noted Chest inspection of chest normal and palpation of chest normal Chest: symmetrical chest wall rise Resp normal respiratory effort Effort and Inspection: able to speak in complete sentences Cardio regular rate GI non-distended Percussion: normal to percussion Rectal Exam: deferred Neuro Speech: speech normal Gait (Neuro): normal gait Assessment & Plan Assessment/Plan (1) Encounter for screening for malignant neoplasm of colon: PLAN: He was explained alternatives including not withstanding bleeding, infection, sepsis, perforation, need for emergent surgery and . He will have an ASA of 3.
--- NOTE | 2024-02-10 08:54 | PRE.ANES_ITS ---
ASA Classification* ASA Classification ASA Classification: 2 Assessment & Plan Anesthesia* Anesthesia Assessment Anesthesia Assessment: Discussed sedation and/or anesthesia options, risks, benefits, and alternatives with patient/parents/legal guardian/POA. Questions invited. The patient/parents/legal guardian/POA seems to understand and agrees to proceed with anesthesia plan. Reviewed the physical assessment, medical history, allergy history and patient home medications list prior to surgery/procedure/anesthetic and documented any changes. Performed airway and anesthesia risk assessments. Anesthesia Type Anesthesia Type: MAC (see written pre anesthesia record for full assessment) Anesthesia Focused Assessment* Temperature: 97.7 F Pulse Rate: 63 Blood Pressure: 126/91 Respiratory Rate: 16 Pulse Ox: 100 Airway Assessment Mouth opens: >3 cm Mallampati Score: II Focused Labs Anesthesia Preop lab: CBC WBC 6.8 K/mm3 (4.4-11.0) 01/13/24 08:20 RBC 5.67 M/mm3 (4.6-6.2) 01/13/24 08:20 Hgb 16.2 g/dL (13.0-16.5) 01/13/24 08:20 Hct 48.2 % (40-54) 01/13/24 08:20 Plt Count 230 K/mm3 (150-450) 01/13/24 08:20 CHEMISTRY Potassium 3.9 mmol/L (3.5-5.1) 01/13/24 08:20 Sodium 141 mmol/L (136-145) 01/13/24 08:20 BUN 19 mg/dL (7-18) H 01/13/24 08:20 Creatinine 1.12 mg/dL (0.70-1.30) 01/13/24 08:20 Glucose 105 mg/dL (74-106) 01/13/24 08:20 POC Glucose 135 mg/dL (70-110) H 03/18/15 11:56 COAG Pre-Assessment Diagnosis/Proposed Procedure Planned Operative Procedure(s): COLONOSCOPY-OA Anesthesia History 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 When Was Last Pacemaker Check QUESTION #4 FULL TEXT: You/Your Family Experience fever (hyperthermia) with Anesthesia Last Oral Intake Last Oral intake: Last Oral Intake NPO since 05:30 02/10/24 08:44 Meds taken in AM with sips of water? Meds patient instructed to take am of surgery PONV PONV - tonnage compilation clerk: PONV - tonnage compilation clerk Female No 02/08/24 09:44 HX of Motion Sickness No 02/08/24 09:44 HX of N/V After Surgery No 02/08/24 09:44 Non-Smoker Yes 02/08/24 09:44 Duration of Surgery greater No 02/08/24 09:44 than 60 minutes Number of Risk Factors 1 02/08/24 09:44 PONV Score Low Risk 02/08/24 09:44 Height & Weight Height & Weight: Anesthesia: Height & Weight Height 6 ft 02/10/24 08:44 Weight: 91.626 kg 02/10/24 08:44 Body Mass Index (BMI) 27.3 02/10/24 08:44 Respiratory Assessment Respiratory Assessment - tonnage compilation clerk: Respiratory Tract Infection Hx - tonnage compilation clerk Hx Respiratory Tract Infection No 02/08/24 09:44 STOP Sleep Apnea STOP Sleep Apnea - tonnage compilation clerk: STOP Sleep Apnea - tonnage compilation clerk Hx Hypertension No 02/08/24 09:44 Hx Sleep Apnea No 02/08/24 09:44 CPAP No 02/08/24 09:44 BIPAP No 02/08/24 09:44 Do you snore loudly (louder No 02/08/24 09:44 than talking or can be heard Do you often feel tired/ No 02/08/24 09:44 fatigued/ sleepy during daytime? Has anyone observed you stop No 02/08/24 09:44 breathing during sleep? STOP Results Negative 02/08/24 09:44 QUESTION #5 FULL TEXT : Do you snore loudly (louder than talking or can be heard through closed doors)? 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 Specify any problems Hx of Preganancy in last 3 N/A 02/08/24 09:44 Months Nurse Filling Out Transfusion VCHRISTIN 02/08/24 09:44 & Questions: Date: 02/08/24 02/08/24 09:44 Time: 09:45 02/08/24 09:44 Patient unable to answer at this time (ie. confused, unrespo /Reproduction History /Reproductive History - tonnage compilation clerk: /Reproductive Hx- tonnage compilation clerk Hx Now Gestational Age (in weeks): EDC: Hx Hx Para Hx Section SAB PFSH Medical History Wears contact lenses Wears glasses Injury of head and neck Biceps tendinitis of right upper extremity Right elbow pain Contact with or suspected exposure to other viral communicable disease Bone spur of foot History of lipoma Home Medications ?Medication ?Instructions ?Recorded ?Last Taken ?Type NK 01/27/23 Unknown History Allergy/AdvReac Type Severity Reaction Status Date / Time No Known Allergies Allergy Verified 02/10/24 08:43 Family History Mother Diabetes Father Diabetes Surgical History Hx of foot surgery Hx of foot surgery History of tonsillectomy and adenoidectomy History of ear surgery History of oral surgery Social History household members: spouse current occupational status: employed Smoking Status: Never smoker alcohol intake: current alcohol intake frequency: a few times a month substance use type: does not use Review of Systems (Anesthesia) ROS Narrative System reviewed and no additional complaints, except as documented.
--- NOTE | 2024-02-10 10:05 | PCM.POST.ANE ---
Anesthesia: Postop Eval I Current Vital Signs Temperature: 97.4 F Pulse Rate: 61 Blood Pressure: 100/67 Respiratory Rate: 16 Pulse Ox: 96 Oxygen Delivery Method: Room Air Assessment Airway patent: Yes Spontaneous unlabored respirations: Yes Mental status: Awake and Calm nausea: No Vomiting: No Anesthesia Complication: No Fluid Hydration Crystalloid volume administer (ml): 50 Total IV fluid infused: 50 Progress Note Anesthesia document: Postop Eval 1 completed: Yes
--- NOTE | 2024-02-10 10:10 | PCM.POSTANE2 ---
Anesthesia Postop Eval I Sum Postop Eval Completion status Anesthesia document: Postop Eval 1 completed: Yes Anesthesia Postop Eval I Summary Anesthesia Postop Eval I Summary: Anesthesia Postop Eval I: Assessment Summary Airway patent Yes 02/10/24 10:06 [email or web address] Spontaneous unlabored Yes 02/10/24 10:06 [email or web address] respirations Mental status Awake,Calm 02/10/24 10:06 [email or web address] nausea No 02/10/24 10:06 [email or web address] Vomiting No 02/10/24 10:06 [email or web address] Anesthesia Postop Eval I: Fluid Summary Crystalloid volume administer 50 02/10/24 10:06 [email or web address] (ml) Colloids volume administered ( ml) Blood Product volume administered (ml) Total IV fluid infused 50 02/10/24 10:06 [email or web address] Anesthesia Postop Eval I: Summary Notes Anesthesia Complication No 02/10/24 10:06 [email or web address] Anesthesia Complication Comment: Post-operative progress note Anesthesia: Postop Eval II Evaluation Mental status: Awake Pain Level: 0 nausea: No Vomiting: No
--- NOTE | 2024-02-14 15:27 | OP.COLON_ITS ---
Patient Name: Domo Mello Procedure Date: 02/10/2024 9:33 AM Date of : 1975 Age: 48 Procedure: Colonoscopy Indications: Screening for colorectal malignant neoplasm Providers: Yosvany Ramirez DO Referring MD: Yosvany Ramirez DO Medicines: Monitored Anesthesia Care Patient Profile: This is a 48 year old male. Refer to note in patient chart for documentation of history and physical. Last Colonoscopy: none. The patient's first colonoscopy is today. Complications: No immediate complications. Procedure: Pre-Anesthesia Assessment: - Prior to the procedure, a History and Physical was performed, and patient medications and allergies were reviewed. The patient is competent. The risks and benefits of the procedure and the sedation options and risks were discussed with the patient. All questions were answered and informed consent was obtained. Patient identification and proposed procedure were verified by the physician in the pre-procedure area. Mental Status Examination: alert and oriented. Airway Examination: normal oropharyngeal airway and neck mobility. Respiratory Examination: clear to auscultation. CV Examination: normal. Prophylactic Antibiotics: The patient does not require prophylactic antibiotics. Prior Anticoagulants: The patient has taken no anticoagulant or antiplatelet agents except for NSAID medication. ASA Grade Assessment: II - A patient with mild systemic disease. After reviewing the risks and benefits, the patient was deemed in satisfactory condition to undergo the procedure. The anesthesia plan was to use monitored anesthesia care (MAC). Immediately prior to administration of medications, the patient was re-assessed for adequacy to receive sedatives. The heart rate, respiratory rate, oxygen saturations, blood pressure, adequacy of pulmonary ventilation, and response to care were monitored throughout the procedure. The physical status of the patient was re-assessed after the procedure. After I obtained informed consent, the scope was passed under direct vision. Throughout the procedure, the patient's blood pressure, pulse, and oxygen saturations were monitored continuously. The Colonoscope was introduced through the anus and advanced to the cecum, identified by appendiceal orifice and ileocecal valve. The colonoscopy was performed without difficulty. The patient tolerated the procedure well. The quality of the bowel preparation was adequate. The ileocecal valve, appendiceal orifice, and rectum were photographed. Scope In: 9:42:34 AM Scope Withdrawal Time 0 hours 11 minutes 28 seconds Scope Out: 9:57:39 AM Total Procedure Duration Time 0 hours 15 minutes 5 seconds Findings: The perianal and digital rectal examinations were normal. The entire examined colon appeared normal on direct and retroflexion views. Impression: - The entire examined colon is normal on direct and retroflexion views. - No specimens collected. Recommendation: - Discharge patient to home. - Resume previous diet. - Continue present medications. - Repeat colonoscopy in 10 years for surveillance. Procedure Code(s): --- Professional --- G0121, Colorectal cancer screening; colonoscopy on individual not meeting criteria for high risk CPT copyright 2021 [employer]. All rights reserved. The codes documented in this report are preliminary and upon tape control skin or spar mill operator review may be revised to meet current compliance requirements. Yosvany Ramirez DO 02/10/2024 10:02:50 AM This report has been signed electronically. Number of Addenda: 0 Note Initiated On: 02/10/2024 9:33 AM
--- NOTE | 2024-02-14 15:27 | OP.CCLET_ITS ---
02/10/2024 Dilia Zambrano [place] [id number] [place] [address] Re : Colonoscopy procedure for Domo Call Dear Dr. Zambrano This procedure was performed on January. My impressions and recommendations are as follows: Impressions : - The entire examined colon is normal on direct and retroflexion views. - No specimens collected. Recommendations : - Discharge patient to home. - Resume previous diet. - Continue present medications. - Repeat colonoscopy in 10 years for surveillance. My findings are described in the full procedure note, which is enclosed. If I can be of further assistance, please feel free to contact me at . Sincerely, Yosvany Ramirez, 02/10/2024 10:02:50 AM This report has been signed electronically.
== END 2024-02-10 10:46 | disposition home or self-care (01) ==
LOC: EN 08:28 → AC 08:29
PROVIDERS: PCP Family Medicine; Referring Provider Internal Medicine Gastroenterology; Visit Provider Internal Medicine Gastroenterology
PROC: 0DJD8ZZ Inspection of Lower Intestinal Tract, Via Natural or Artificial Opening Endoscopic (ICD-10-PCS; CPT 45378; principal; 2024-02-10 09:25)
DX: Z12.11 Encounter for screening for malignant neoplasm of colon (principal)
CPT/HCPCS: 45378; A4216; J2405

== ENCOUNTER 2024-03-22 08:30 | Outpatient (RCR) | payer OTHER, SELFPAY ==
--- NOTE | 2024-03-22 08:47 | HP.PTDCSUM ---
Discharge Summary D/C summary: It has been my pleasure to treat SOFIA GUERIN referred by Dr. Dilia Zambrano MD, with the diagnosis of coccyx pain for a total of 10 visit(s). Discharge Date: 03/22/24 Please see the following information for a summary of their discharge status. Subjective Subjective: No pain in last two w3eeks. A little flare up this past weekend. / when sitting. Exercises going OK. No f/u with doctor. Pain coccyx area: Pain Intensity (Out of 10): 0 Overall Improvement % Improvement: 100 Objective Objective/Function: good extension, hip rotation and knee flexion muscle contractions without pain. Full AROM of hip and suurounding muscles without pain, some mild tenderness to palpation R sacral soft tissue, otherwise normal presentation today and no pain with sitting. Goals Goal 1:: Sit without increased pain for 2 hours Goal Progress: Goal Met Goal 2:: pain overall decreased by 75% to 1/10 at worst Goal Progress: Goal Met Goal 3:: I management of condition Goal Progress: Goal Met Plan Plan: d/c to HEP D/C Information d/c sentence: If there are questions or concerns regarding this patient's physical therapy, please feel free to call me at [phone]. Thank you for the referral of this patient. Sincerely, Rob Alvarez, DPT, OCS, CSCS Balance/Gait/Functional tests Balance/Special Test Scores Oswestry Low Back Score: 0 Lower Extremity Functional Score: 79 Improvement % Improvement: 100
== END 2024-03-22 19:00 | disposition home or self-care (01) ==
LOC: PT 08:30
PROVIDERS: PCP Family Medicine; Referring Provider Family Medicine; Visit Provider Family Medicine
DX: M53.3 Sacrococcygeal disorders, not elsewhere classified (principal)
CPT/HCPCS: 97035; 97110; 97140; 97161

== ENCOUNTER 2024-08-31 21:24 | Emergency (ER) | payer OTHER, SELFPAY ==
[2024-08-31 21:25] VITALS: BP 129/80; PULSE 64; RESP 15; TEMP 36.6; O2SAT 99; BMI 27.6
--- NOTE | 2024-08-31 22:05 | RAD_ITS ---
PROCEDURE: CHEST 1 VIEW (PORTABLE) 08/31/2024 REASON FOR EXAM: CHEST PAIN TECHNIQUE: Frontal view of the chest. COMPARISON: None FINDINGS: Hardware: None Heart: The heart size is normal. Lungs: No focal consolidation. No pneumothorax. No pleural effusion. Bones: The bones are unremarkable. Other: RAD/Chest 1 View (Portable) IMPRESSION: No Acute Findings. Reading Location: [facility]
--- NOTE | 2024-08-31 22:19 | EDS_ITS ---
HPI History of Present Illness Chief Complaint: Chest Pain Informant: patient and family Narrative Narrative: 49-year-old male presenting to the emergency room for the evaluation of chest pain. Patient states that around 1830 he was laying on the couch he developed a pressure sensation in the right chest going into his back and up towards his neck. States he tried to stretch it out nothing seemed to relieve it but it has gotten better now but seems to come back at times. He denies any DVT PE risk factors or history of. He is an avid runner notes no change in exercise tolerance. No cough or fevers. He tried some Tums with no relief. [facility] Medical History Wears contact lenses Wears glasses Injury of head and neck Biceps tendinitis of right upper extremity Right elbow pain Contact with or suspected exposure to other viral communicable disease Bone spur of foot History of lipoma Home Medications ?Medication ?Instructions ?Recorded ?Last Taken ?Type NK 01/27/23 Unknown History Allergy/AdvReac Type Severity Reaction Status Date / Time No Known Allergies Allergy Verified 08/31/24 21:27 Family History Mother Diabetes Father Diabetes Surgical History Hx of foot surgery Hx of foot surgery History of tonsillectomy and adenoidectomy History of ear surgery History of oral surgery Social History household members: spouse current occupational status: employed Smoking Status: Never smoker alcohol intake: current alcohol intake frequency: a few times a month substance use type: does not use ROS ROS ED Constitutional Constitutional ED: Denies chills or weight loss Eyes Eyes: Denies change in vision or diplopia ENT ENT ED: Denies ear pain, rhinorrhea or sore throat Cardiovascular Cardiovascular: Reports as per HPI and chest pain; Denies orthopnea, palpitations or racing heartbeat Respiratory/Chest Respiratory/Chest: Denies cough, dyspnea or orthopnea Gastrointestinal Gastrointestinal: Denies abdominal pain, diarrhea, nausea or vomiting Genitourinary Genitourinary ED: Denies dysuria, hematuria or urinary frequency Musculoskeletal Musculoskeletal: Reports back pain and neck pain; Denies arthralgias or myalgias Integumentary Denies abscess or rash Neurologic Neurologic: Denies headache(s) or weakness Psychiatric Psychiatric: Denies anxiety, depression, suicidal ideation or suicidal thoughts Endocrine Endocrinology: Denies polydipsia, polyphagia or polyuria Allergic/Immunologic Allergic/Immunologic ED: Denies mouth swelling, tongue swelling or urticaria EXAM Physical Exam Const Vital Signs: 08/31/24 21:25 08/31/24 21:59 08/31/24 22:24 Temperature 97.9 F Temperature Source Oral Pulse Rate 64 54 L Respiratory Rate 15 Blood Pressure 129/80 H 114/80 Blood Pressure Mean 96 91 Pulse Ox 99 98 Oxygen Delivery Method Room Air Room Air Room Air 08/31/24 23:00 08/31/24 23:55 Temperature Temperature Source Pulse Rate 54 L 61 Respiratory Rate 15 Blood Pressure 114/80 129/72 H Blood Pressure Mean 91 91 Pulse Ox 98 97 Oxygen Delivery Method Room Air Room Air Positive well nourished and well developed General Appearance ED: well developed and NAD HEENT Reports normocephalic, head/scalp atraumatic and moist mucous membranes Eyes PERRL and EOMs intact bilaterally Neck no lymphadenopathy, supple and no JVD Resp normal respiratory effort and clear to auscultation bilaterally Cardio regular rate, regular rhythm and no murmurs GI normal to inspection, nondistended, normoactive bowel sounds and non-tender Palpation: soft Back/Spine no CVA tenderness and normal ROM Extremity normal to inspection General Extremety ED: Negative for edema General Extremity: Negative for edema Neuro oriented x3 and CN's II-XII intact bilaterally Sensorium / Orientation: alert Motor Exam: strength 5/5 throughout Psych mental status grossly normal Mood & Affect: Negative for depressed or tearful Skin no rashes or lesions noted and no wounds MDM MDM MDM Narrative Medical decision making narrative: Differential diagnosis includes pulmonary embolism pneumothorax acute coronary syndrome pleural effusion pneumonia musculoskeletal chest pain Initial troponin is 7 creatinine 0.93 D-dimer elevated 0.51 white count 7.8 hemoglobin 15.1. I have had interpretation of the chest x-ray is no acute process. EKG is nonischemic. Because of the elevated D-dimer and the patient's symptomology a CTA of the chest was obtained. This was read by radiology reviewed by myself. This is negative for pulmonary embolism or dissection. Delta troponin was obtained and is less than 6. This point I think the patient can be discharged home. I think there is a good chance this could be musculoskeletal in nature. Patient to follow-up with primary care return if worsening or concerns History & Record Review Discussion w/independent historian: Patient and Family Lab Data Attestation: I reviewed the patient's lab results. Labs: Laboratory Results - last 24 hr 08/31/24 08/31/24 21:40 23:45 WBC 7.8 RBC 5.16 Hgb 15.1 Hct 43.9 MCV 85.1 MCH 29.3 MCHC 34.4 RDW Std Deviation 40.6 RDW Coeff of Radha 13.0 Plt Count 202 MPV 9.9 Immature Gran % (Auto) 0.400 Neut % (Auto) 54.0 Lymph % (Auto) 32.1 [place] % (Auto) 9.6 Eos % (Auto) 2.9 Baso % (Auto) 1.0 Absolute Neuts (auto) 4.2 Absolute Lymphs (auto) 2.51 Nucleated RBC % 0 D-Dimer Quant (PE/DVT) 0.51 H* Sodium 140 Potassium 3.8 Chloride 104 Carbon Dioxide 25.4 Anion Gap 11 BUN 16 Creatinine 0.93 Estim Creat Clear Calc 104.30 Est GFR (MDRD) Non-Af 100 BUN/Creatinine Ratio 17.3 Glucose 99 Calcium 9.2 Troponin T High Sens 7 Troponin T Hi Sens 2 Hr < 6 Radiography Diagnostic Testing: Clinical Impression(s) from Imaging Studies Chest X-Ray 08/31/24 22:05 IMPRESSION: No Acute Findings. Reading Location: [facility] Chest CTA 08/31/24 23:04 IMPRESSION: No evidence of filling defect to suggest pulmonary embolism. No evidence of acute process. Reading Location: [id number] EKG Initial EKG: Attestation: I personally reviewed and interpreted this EKG as follows: Comments: Sinus bradycardia ventricular rate of 53 bpm Discharge Plan Triage Chief Complaint: Chest Pain ED Provider: French Lundberg Dx/Rx/DC Orders Clinical Impression: Chest pain Instructions: ED Chest Pain, Noncardiac Prescriptions: No Action NK Primary Care Provider: Dilia Zambrano Referrals: Dilia Zambrano MD [Primary Care Provider] - 3-5 Days Print Language: Kinyarwanda Disposition Disposition: Home, Self Care
[2024-08-31 22:24] VITALS: BP 114/80; PULSE 54; O2SAT 98
[2024-08-31 22:27] LABS: Absolute Lymphocyte Count 2.51 X10^3/uL (0.83-4.51); Absolute Neutrophil Count 4.2 X10^3/uL (2.0-7.7); Basophil# 0.08 X10^3/uL; Eosinophil# 0.23 X10^3/uL; Eosinophils% 2.9 % (0-5); Hematocrit 43.9 % (40-54); Hemoglobin 15.1 g/dL (13.0-16.5); Lymphocyte # 2.51 X10^3/ul (0.83-4.51); Lymphocyte % 32.1 % (19-41); Mean Corp Hgb Conc 34.4 g/dL (32-36); Mean Corpuscular Hgb 29.3 pg (27.0-32.0); Mean Corpuscular Volume 85.1 fL (80-94); Mean Platelet Vol. 9.9 fl (6.2-12.0); Monocyte# 0.75 X10^3/uL; Monocyte% 9.6 % (0-10); NRBC Flagged by Analyzer 0 % (0-5); Neutrophil # 4.21 X10^3/uL (2.7-7.7); Platelet Count 202 K/mm3 (150-450); RBC Distribution Width SD 40.6 fl (35.1-43.9); Red Blood Count 5.16 M/mm3 (4.6-6.2); White Blood Count 7.8 K/mm3 (4.4-11.0)
[2024-08-31 22:37] LABS: Anion Gap 11 (5-15); BUN 16 mg/dL (4-19); BUN/Creat Ratio 17.3 RATIO (10-20); Calcium,Total 9.2 mg/dL (7.6-11.0); Carbon Dioxide 25.4 mmol/L (21.0-32.0); Chloride 104 mmol/L (98-108); Creatinine, Serum 0.93 mg/dL (0.70-1.20); EST Glomerular Filtration Rate 100 (>60); Glucose 99 mg/dL (70-99); Potassium 3.8 mmol/L (3.3-5.1); Sodium Level 140 mmol/L (133-145); Troponin T High Sensitivity 7 ng/L (<=22)
[2024-08-31 23:00] VITALS: BP 114/80; PULSE 54; O2SAT 98
[2024-08-31 23:01] LABS: D-Dimer Quantitative (DVT/PE) 0.51 FEU/ug/m (0.27-0.49)
--- NOTE | 2024-08-31 23:04 | CT_ITS ---
PROCEDURE: CTA CHEST W/WO CONTRAST 08/31/2024 REASON FOR EXAM: CHEST PAIN PULMONARY EMBOLISM (R) TECHNIQUE: CTA imaging of the chest with intravenous contrast. Multiplanar and multisequence images were obtained. CONTRAST: 100 cc Isovue 370 IV One or more dose reduction techniques were used (e.g., Automated exposure control, adjustment of the mA and/or kV according to patient size, use of iterative reconstruction technique). RADIATION DOSE SUMMARY: CTDlvol: 14.25 mGy DLP: 448.90 mGycm FINDINGS: No evidence of filling defect to suggest pulmonary embolism. Thoracic aorta and visualized great vessels appear within limits. No pericardial or pleural effusion. No adenopathy. Limited images of the upper abdomen appear within limits. The central airways appear patent. The lungs appear clear. No pneumothorax. Visualized osseous structures appear within limits. 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 CT/CTA Chest W/WO Contrast IMPRESSION: No evidence of filling defect to suggest pulmonary embolism. No evidence of ac orutsararmiut process. Reading Location: [id number]
[2024-08-31 23:55] VITALS: BP 129/72; PULSE 61; RESP 15; O2SAT 97
[2024-09-01 00:20] LABS: Troponin T High Sens 2 HR < 6 ng/L (<=22)
[2024-09-01 00:43] VITALS: BP 125/79; PULSE 52; RESP 16; TEMP 36.6; O2SAT 100
== END 2024-09-01 00:44 | disposition home or self-care (01) ==
PROVIDERS: Emergency Provider Emergency Medicine; PCP Family Medicine; Referring Provider Emergency Medicine; Visit Provider Emergency Medicine
DX: R07.9 Chest pain, unspecified (principal); M54.2 Cervicalgia
CPT/HCPCS: 71045; 71275; 80048; 84484; 85025; 85379; 93005; 99284; Q9967; A4216

== ENCOUNTER → 2024-11-20 | Outpatient (CLI) | payer OTHER, SELFPAY ==
--- NOTE | 2024-11-20 11:31 | RAD_ITS ---
PROCEDURE: L/S SPINE MIN 4 VIEWS 11/20/2024 REASON FOR EXAM: LUMBAGO WITH SCIATICA, LEFT SIDE TECHNIQUE: L/S SPINE MIN 4 VIEWS COMPARISON: None. FINDINGS: No evidence of fracture or subluxation. Alignment is anatomic. Preserved vertebral body heights and disc spaces. Lower lumbar hypertrophic facet arthropathy, otherwise no significant degenerative changes are appreciated. Probable mild-moderate osseous neural foraminal narrowing bilaterally at L5-S1. Unremarkable soft tissues. RAD/L/S Spine Min 4 Views IMPRESSION: No evidence of fracture or subluxation. Mild spondylotic changes. Reading Location: [id number]
== END | disposition home or self-care (01) ==
LOC: MTRAD 11:30
PROVIDERS: PCP Family Medicine; Referring Provider Nurse Practitioner Family; Visit Provider Nurse Practitioner Family
DX: M54.42 Lumbago with sciatica, left side (principal)
CPT/HCPCS: 72110

== ENCOUNTER → 2024-12-07 | Outpatient (CLI) | payer OTHER, SELFPAY ==
--- NOTE | 2024-12-07 07:48 | MRI_ITS ---
PROCEDURE: SPINE LUMBAR (ROUTINE) 12/07/2024 REASON FOR EXAM: ASSESS FOR NERVE COMPRESSION TECHNIQUE: SPINE LUMBAR (ROUTINE) FINDINGS: Normal lumbar vertebral body height and alignment. No subluxation. No compression deformity. Normal conus. Negative for marrow edema. No paravertebral mass lesion. Abdominal aorta exhibits normal caliber. L1-L2, L2-L3 and L3-L4 are within normal limits. At L4-5, there is a left paracentral disc extrusion which migrates superiorly on the left with left L4 nerve compression prior to its entrance into the neural foramen. L5-S1 is unremarkable. MRI/Spine Lumbar (Routine) IMPRESSION: The dominant finding is of the left-sided disc extrusion at L4-5 migrating supe riorly on the left side with left L4 nerve compression Reading [facility]
== END | disposition home or self-care (01) ==
LOC: OPMRI 07:45
PROVIDERS: PCP Family Medicine; Referring Provider Nurse Practitioner Family; Visit Provider Nurse Practitioner Family
DX: M54.42 Lumbago with sciatica, left side (principal)
CPT/HCPCS: 72148